=== PATIENT | male | born 1960 | race Caucasian/White ===

== ENCOUNTER → 2020-08-20 | Day surgery (SDC) | payer OTHER ==
[~2020-08-20] MED LIST: ACETAMINOPHEN325 MG PO; DOXYCYCLINE MO100 M1 PO; ELAVIL25 MG PO; GLUCOTROL XL5 MG PO; KRILL OIL 1,001 EAC1 PO; LIPITOR20 MG PO; METFORMIN HCL500 MG PO; MOBIC7.5 MG PO; MOTRIN600 MG PO; NEURONTIN300 MG PO; NORCO 5-325 TA1 EACH PO; NORVASC5 MG PO; PRINIVIL20 MG PO; UROCIT-K10 MEQ PO; ZOFRAN4 MG PO
[2020-08-20 07:56] LABS: HGB 14.2 g/dl (13.2-18.0); MCHC 35.5 g/dL (32.0-36.0); MCV 78.7 fL (78.0-100.0); MPV 9.8 fL (6.0-9.5); RBC 5.08 M/uL (4.70-6.00); WBC 10.7 K/uL (4.0-10.5)
[2020-08-20 08:22] LABS: ALBUMIN 3.7 g/dL (3.4-5.0); BILIRUBIN - TOTAL 0.7 mg/dL (0.2-1.0); BUN/CREAT RATIO (CALC) 21.8 RATIO; CREATININE 0.78 mg/dL (0.67-1.17); POTASSIUM 3.6 mmol/L (3.5-5.1); TOTAL PROTEIN 6.7 g/dL (6.4-8.2)
== END | disposition home or self-care (01) ==
LOC: FAS 06:48
PROVIDERS: Surgery
DX: Z12.11 Encounter for screening for malignant neoplasm of colon (principal); D12.0 Benign neoplasm of cecum; D12.6 Benign neoplasm of colon, unspecified; I10 Essential (primary) hypertension; E78.00 Pure hypercholesterolemia, unspecified; E78.2 Mixed hyperlipidemia; E11.9 Type 2 diabetes mellitus without complications; N40.0 Benign prostatic hyperplasia without lower urinary tract symptoms; Z79.899 Other long term (current) drug therapy; Z79.84 Long term (current) use of oral hypoglycemic drugs; Z86.010 Personal history of colon polyps; Z80.0 Family history of malignant neoplasm of digestive organs; Z20.822 Contact with and (suspected) exposure to COVID-19
CPT/HCPCS: 36415; 80053; 82962; J1610; J2704; J7120